=== PATIENT | male | born 1970 | race Caucasian/White ===

== ENCOUNTER → 2017-07-19 | Outpatient (CLI) | payer OTHER ==
[2017-07-19 16:44] LABS: Basophils # (A) 0.1 k/uL (0-0.2); Basophils % (A) 1 %; Eosinophils # (A) 0.8 k/uL (0-0.7); Eosinophils % (A) 11 %; HCT 47.7 % (39.0-53.0); HGB 15.4 gm/dL (13.0-17.5); Lymphocytes # (A) 1.5 k/uL (1.0-4.8); Lymphocytes % (A) 20 %; MCH 32.5 pg (25.0-35.0); MCHC 32.2 g/dL (31.0-37.0); MCV 100.8 fL (80.0-100.0); Mean Platelet Volume 8.5; Monocytes # (A) 0.7 k/uL (0-1.0); Monocytes % (A) 9 %; Neutrophils # (A) 4.2 k/uL (1.3-7.7); Neutrophils % (A) 57 %; Platelet Count 191 k/uL (150-450); RBC 4.74 m/uL (4.30-5.90); RDW 12.4 % (11.5-15.5); WBC 7.5 k/uL (3.8-10.6)
[2017-07-19 16:58] LABS: ALT 39 U/L (21-72); AST 23 U/L (17-59); Albumin 4.4 g/dL (3.5-5.0); Alkaline Phosphatase 55 U/L (38-126); Anion Gap 12 mmol/L; Blood Urea Nitrogen 9 mg/dL (9-20); Calcium 9.8 mg/dL (8.4-10.2); Carbon Dioxide 29 mmol/L (22-30); Chloride 100 mmol/L (98-107); Glucose 83 mg/dL (74-99); Potassium 4.3 mmol/L (3.5-5.1); Sodium 141 mmol/L (137-145); Total Bilirubin 0.3 mg/dL (0.2-1.3); Total Protein 7.4 g/dL (6.3-8.2)
[2017-07-19 17:14] LABS: T4, Free (Free Thyroxine) 0.87 ng/dL (0.78-2.19)
[2017-07-20 02:43] LABS: Streptolysin O Ab(ASO) <25 IU/mL (0-200)
[2017-07-20 02:52] LABS: DHEA Sulfate 325.9 ug/dL (34.5-568.9)
[2017-07-20 05:10] LABS: Thyroid Peroxidase Antibodies <28.0 U/mL (0.0-60.0)
[2017-07-20 06:24] LABS: Anti-DNA, DS unit <1.0 IU/mL; DNA Double-Stranded NEGATIVE (NEGATIVE)
[2017-07-20 08:03] LABS: EBV - EA (IgG) 9.6 U/mL (<9.0)
[2017-07-20 14:50] LABS: Vitamin B12 >4000.0 pg/mL (211-911)
[2017-07-21 14:11] LABS: Strep DNASE B Antibody <86 U/mL (0-260)
[2017-07-21 16:29] LABS: Bartonella henselae Ab, IgG <1:64; Bartonella henselae Ab, IgM < 1:16
[2017-07-22 22:11] LABS: Herpes simplex I and/or II IgM 0.58 INDEX (<=0.90); Herpes simplex IgG I Ab >62.20 (< or = 0.90); Herpes simplex IgG II Ab 0.08 (< or = 0.90)
[2017-07-23 03:44] LABS: Mycoplasma IgM Antibody 0.14 INDEX (<=0.90)
[2017-07-23 10:18] LABS: Casein IgE Class CLASS 0
[2017-07-23 16:12] LABS: Vitamin D 25 Hydroxy 55.4 ng/mL (30.0-100.0)
[2017-07-23 18:03] LABS: Gliadin AB IgA, Unit <0.2 U/mL
[2017-07-23 19:44] LABS: Cow's Milk IgG 63.9 mcg/mL (< 2.0); Peanut IgG 12.1 mcg/mL (< 2.0); Soybean IgG 6.1 mcg/mL (< 2.0); Walnut IgG 16.3 mcg/mL (< 2.0); Wheat IgG 24.8 mcg/mL (< 2.0)
[2017-07-23 19:45] LABS: Casein IgG 7.4 mcg/mL (< 2.0); Corn IgG 14.4 mcg/mL (< 2.0)
[2017-07-24 13:25] LABS: IgG Subclass 3 35.2 mg/dL (11.0-85.0)
[2017-07-24 13:29] LABS: Immunoglobulin M 64.9 mg/dL (40.0-280.0)
[2017-07-24 13:48] LABS: IgG Subclass 4 0.3 mg/dL (3.0-175.0)
== END | disposition home or self-care (01) ==
LOC: LABWHC1 07-18 16:51
PROVIDERS: ATTEND Nurse Practitioner Family
DX: M35.9 Systemic involvement of connective tissue, unspecified (principal); R53.83 Other fatigue
CPT/HCPCS: 36415; 80053; 81291; 82024; 82139; 82306; 82530; 82533; 82607; 82627; 82728; 82784; 82785; 82787; 83516; 83520; 83540; 83550; 84439; 84443; 84481; 85025; 86001; 86003; 86038; 86060; 86160; 86215; 86225; 86376; 86611; 86628; 86644; 86645; 86663; 86664; 86665; 86666; 86694; 86695; 86696; 86738; 86753; 86790; 86800; 87798; 88184; 88185

== ENCOUNTER → 2017-08-09 | Outpatient (CLI) | payer OTHER | END | disposition home or self-care (01) | LOC: LABWHC1 13:55 | PROVIDERS: ATTEND Nurse Practitioner Family | DX: T78.1XXA Other adverse food reactions, not elsewhere classified, initial encounter (principal); Z91.018 Allergy to other foods; M35.9 Systemic involvement of connective tissue, unspecified; R53.83 Other fatigue | CPT/HCPCS: 36415; 86003 ==

== ENCOUNTER 2018-09-01 10:03 | Emergency (ER) | payer OTHER ==
[2018-09-01 10:19] VITALS: RESP 18
--- NOTE | 2018-09-01 11:38 | ED ---
General Adult HPI - General Chief complaint: Dizziness Stated complaint: lt arm pain Time Seen by Provider: 09/01/18 10:38 Source: patient, RN notes reviewed, old records reviewed Mode of arrival: ambulatory Limitations: no limitations - History of Present Illness Initial comments: 48-year-old malewith past medical history presents for evaluation of left arm pain, maybe mild left sided chest pain. Patient's symptoms began yesterday evening, described tingling sensation and very mild pain in the left arm. This was while at rest. Denies central chest pain at that time. He did develop some left-sided chest pain throughout the evening. Symptoms began approximately 14 hours prior to arrival. No nausea vomiting. No diaphoresis. No dyspnea. No abdominal pain. No headache. No vision changes. No focal weakness. No history of CVA. No history of CAD. No current medications. Patient also had an episode of lightheadedness dizziness which lasted just moments. He is asymptomatic with regard to this symptom at the time my evaluation. He has no history of CAD. He does walk daily with no complaints. - Related Data Home Medications Medication Instructions Recorded Confirmed Cyanocobalamin (Vitamin B-12) 1,000 mcg PO Q48H 09/01/18 09/01/18 [Vitamin B-12] Allergies Allergy/AdvReac Type Severity Reaction Status Date / Time corn Allergy Unknown Verified 09/01/18 10:54 egg Allergy Unknown Verified 09/01/18 10:54 Milk Containing Products Allergy Unknown Verified 09/01/18 10:54 [Dairy] wheat Allergy Unknown Verified 09/01/18 10:54 Review of Systems ROS Statement: Those systems with pertinent positive or pertinent negative responses have been documented in the HPI. ROS Other: All systems not noted in ROS Statement are negative. Past Medical History Past Medical History: No Reported History History of Any Multi-Drug Resistant Organisms: C-DIFF Date of last positivie culture/infection: 2012 Past Surgical History: Orthopedic Surgery Additional Past Surgical History / Comment(s): L arm, L leg vein replacement Past Psychological History: No Psychological Hx Reported Smoking Status: Never smoker Past Alcohol Use History: Occasional Past Drug Use History: None Reported General Exam Limitations: no limitations General appearance: alert, in no apparent distress Head exam: Present: atraumatic, normocephalic Eye exam: Present: normal appearance, PERRL, EOMI ENT exam: Present: normal exam Neck exam: Present: normal inspection, tenderness Respiratory exam: Present: normal lung sounds bilaterally. Absent: respiratory distress, wheezes Cardiovascular Exam: Present: regular rate, normal rhythm GI/Abdominal exam: Present: soft. Absent: distended, tenderness, guarding Extremities exam: Present: normal inspection, normal capillary refill, other ( left radial pulse 2+, normal hat brim curler strength, normal cap refill). Absent: pedal edema, calf tenderness Neurological exam: Present: alert, oriented X3, CN II-XII intact. Absent: motor sensory deficit (No sensory deficit, no focal weakness.) Psychiatric exam: Present: normal affect, normal mood Skin exam: Present: warm, dry, intact. Absent: cyanosis, diaphoretic Course Vital Signs 09/01/18 10:15 Temperature 98.5 F Pulse Rate 82 Respiratory 18 Rate Blood Pressure 143/101 O2 Sat by Pulse 97 Oximetry EKG Findings - EKG Comments: EKG Findings:: EKG: Normal sinus rhythm, ventricular rate 71, WA interval 150, QRS duration 88, QTC 425, no ST segment elevation or depression Medical Decision Making - Medical Decision Making 48-year-old male with very mild left arm pain, paresthesia, and possibly some minimal left lateral chest pain. Patient concerned that this may be related to his heart. EKG is negative for definitive signs of ischemia. Patient has no risk factors, no central chest pain. No vomiting or diaphoresis. Symptoms began 14 hours prior to arrival. Chest x-ray obtained, negative for acute cardiopulmonary disease. CBC, CMP unremarkable, negative troponin, I am reassured by this negative troponin as symptoms have been constant and present for 14 hours. I did have a lengthy discussion with the patient regarding return parameters, will return with central chest pain, nausea, diaphoresis. Will return with focal numbness or weakness. Follow-up with his primary care physician. - Lab Data Result diagrams: 09/01/18 11:54 09/01/18 11:54 Lab Results 09/01/18 09/01/18 09/01/18 Range/Units 11:54 11:54 11:54 WBC 7.5 (3.8-10.6) k/uL RBC 4.52 (4.30-5.90) m/uL Hgb 14.8 (13.0-17.5) gm/dL Hct 44.0 (39.0-53.0) % MCV 97.3 (80.0-100.0) fL MCH 32.8 (25.0-35.0) pg MCHC 33.7 (31.0-37.0) g/dL RDW 12.5 (11.5-15.5) % Plt Count 187 (150-450) k/uL Neutrophils % 63 % Lymphocytes % 18 % Monocytes % 9 % Eosinophils % 8 % Basophils % 1 % Neutrophils # 4.8 (1.3-7.7) k/uL Lymphocytes # 1.4 (1.0-4.8) k/uL Monocytes # 0.7 (0-1.0) k/uL Eosinophils # 0.6 (0-0.7) k/uL Basophils # 0.0 (0-0.2) k/uL PT (9.0-12.0) sec INR (<1.2) APTT (22.0-30.0) sec Sodium 142 (137-145) mmol/L Potassium 4.4 (3.5-5.1) mmol/L Chloride 107 (98-107) mmol/L Carbon Dioxide 26 (22-30) mmol/L Anion Gap 9 mmol/L BUN 14 (9-20) mg/dL Creatinine 0.70 (0.66-1.25) mg/dL Est GFR (CKD-EPI)AfAm >90 (>60 ml/min/1.73 sqM) Est GFR (CKD-EPI)NonAf >90 (>60 ml/min/1.73 sqM) Glucose 92 (74-99) mg/dL Calcium 9.8 (8.4-10.2) mg/dL Magnesium 2.1 (1.6-2.3) mg/dL Total Bilirubin 0.7 (0.2-1.3) mg/dL AST 25 (17-59) U/L ALT 32 (21-72) U/L Alkaline Phosphatase 53 (38-126) U/L Total Creatine Kinase 114 (55-170) U/L CK-MB (CK-2) 0.4 (0.0-2.4) ng/mL CK-MB (CK-2) Rel Index 0.4 Troponin I <0.012 (0.000-0.034) ng/mL Total Protein 7.8 (6.3-8.2) g/dL Albumin 4.5 (3.5-5.0) g/dL 09/01/18 Range/Units 11:54 WBC (3.8-10.6) k/uL RBC (4.30-5.90) m/uL Hgb (13.0-17.5) gm/dL Hct (39.0-53.0) % MCV (80.0-100.0) fL MCH (25.0-35.0) pg MCHC (31.0-37.0) g/dL RDW (11.5-15.5) % Plt Count (150-450) k/uL Neutrophils % % Lymphocytes % % Monocytes % % Eosinophils % % Basophils % % Neutrophils # (1.3-7.7) k/uL Lymphocytes # (1.0-4.8) k/uL Monocytes # (0-1.0) k/uL Eosinophils # (0-0.7) k/uL Basophils # (0-0.2) k/uL PT 11.0 (9.0-12.0) sec INR 1.0 (<1.2) APTT 24.4 (22.0-30.0) sec Sodium (137-145) mmol/L Potassium (3.5-5.1) mmol/L Chloride (98-107) mmol/L Carbon Dioxide (22-30) mmol/L Anion Gap mmol/L BUN (9-20) mg/dL Creatinine (0.66-1.25) mg/dL Est GFR (CKD-EPI)AfAm (>60 ml/min/1.73 sqM) Est GFR (CKD-EPI)NonAf (>60 ml/min/1.73 sqM) Glucose (74-99) mg/dL Calcium (8.4-10.2) mg/dL Magnesium (1.6-2.3) mg/dL Total Bilirubin (0.2-1.3) mg/dL AST (17-59) U/L ALT (21-72) U/L Alkaline Phosphatase (38-126) U/L Total Creatine Kinase (55-170) U/L CK-MB (CK-2) (0.0-2.4) ng/mL CK-MB (CK-2) Rel Index Troponin I (0.000-0.034) ng/mL Total Protein (6.3-8.2) g/dL Albumin (3.5-5.0) g/dL Disposition Clinical Impression: Paresthesia, Chest pain Disposition: HOME SELF-CARE Condition: Good Instructions (If sedation given, give patient instructions): Paresthesia (ED), Chest Pain (ED) Is patient prescribed a controlled substance at d/c from ED?: No Referrals: Raulito Don DO [Primary Care Provider] - 1-2 days Time of Disposition: 13:23
--- NOTE | 2018-09-01 11:39 | XR ---
EXAMINATION TYPE: XR chest 2V DATE OF EXAM: 09/01/2018 COMPARISON: None INDICATION: Chest pain TECHNIQUE: Frontal and lateral views of the chest are obtained. FINDINGS: The heart size is normal. The pulmonary vasculature is normal. The lungs are clear. IMPRESSION: 1. No acute pulmonary process.
[2018-09-01 12:29] LABS: Basophils % (A) 1 %; Eosinophils # (A) 0.6 k/uL (0-0.7); Eosinophils % (A) 8 %; HGB 14.8 gm/dL (13.0-17.5); Lymphocytes # (A) 1.4 k/uL (1.0-4.8); Lymphocytes % (A) 18 %; MCH 32.8 pg (25.0-35.0); MCHC 33.7 g/dL (31.0-37.0); MCV 97.3 fL (80.0-100.0); Mean Platelet Volume 8.1; Monocytes # (A) 0.7 k/uL (0-1.0); Monocytes % (A) 9 %; Neutrophils # (A) 4.8 k/uL (1.3-7.7); Neutrophils % (A) 63 %; Platelet Count 187 k/uL (150-450); RBC 4.52 m/uL (4.30-5.90); RDW 12.5 % (11.5-15.5); WBC 7.5 k/uL (3.8-10.6)
[2018-09-01 12:32] LABS: ALT 32 U/L (21-72); AST 25 U/L (17-59); Albumin 4.5 g/dL (3.5-5.0); Alkaline Phosphatase 53 U/L (38-126); Anion Gap 9 mmol/L; Blood Urea Nitrogen 14 mg/dL (9-20); Calcium 9.8 mg/dL (8.4-10.2); Carbon Dioxide 26 mmol/L (22-30); Chloride 107 mmol/L (98-107); Glucose 92 mg/dL (74-99); Magnesium 2.1 mg/dL (1.6-2.3); Potassium 4.4 mmol/L (3.5-5.1); Sodium 142 mmol/L (137-145); Total Bilirubin 0.7 mg/dL (0.2-1.3); Total Protein 7.8 g/dL (6.3-8.2)
[2018-09-01 12:44] LABS: Creatine Kinase 114 U/L (55-170); Partial Thromboplastin Time 24.4 sec (22.0-30.0)
[2018-09-01 12:56] LABS: Creatine Kinase MB 0.4 ng/mL (0.0-2.4); Troponin I <0.012 ng/mL (0.000-0.034)
[2018-09-01 13:22] VITALS: BP 131/86; PULSE 66; TEMP 98.7
== END 2018-09-01 13:37 | disposition home or self-care (01) ==
LOC: EC 10:03
DX: R20.2 Paresthesia of skin (principal); R07.9 Chest pain, unspecified; M79.602 Pain in left arm; R42 Dizziness and giddiness; Z91.011 Allergy to milk products; Z91.012 Allergy to eggs; Z91.018 Allergy to other foods
CPT/HCPCS: 36415; 71046; 80053; 82550; 82553; 83735; 84484; 85025; 85610; 85730; 99284

== ENCOUNTER → 2021-07-06 | Outpatient (CLI) | payer OTHER ==
--- NOTE | 2021-07-06 15:02 | CT ---
EXAMINATION TYPE: CT sinus wo con DATE OF EXAM: 07/06/2021 COMPARISON: None HISTORY: Chronic sinusitis. Allergies. CT DLP: 734.3 mGycm. Automated Exposure Control for Dose Reduction was Utilized. TECHNIQUE: CT scan of the sinuses is performed without contrast, axial images are obtained, coronal r eformatted images are also reviewed. FINDINGS: Severe mucosal thickening involving the ethmoid air cells. Frontal mild mucosal thickening involving the frontal sinus and sphenoid sinus. There is mild mucosal thickening involving the maxill abbey sinus with occlusion of the bilateral ostiomeatal complex. Visualized portion of mastoid air cells show no abnormal opacification. The globes are intact bilate rally. There is a slight nasal septal deviation. IMPRESSION: 1. Severe ethmoidal bilateral sinusitis with occlusion of the ostiomeatal complex. Mild mucosal thick ening involving the remaining paranasal sinuses. No air-fluid levels.
== END | disposition home or self-care (01) ==
LOC: RADCTMAIN 14:07
PROVIDERS: ATTEND Otolaryngology
DX: J32.2 Chronic ethmoidal sinusitis (principal); J34.89 Other specified disorders of nose and nasal sinuses
CPT/HCPCS: 70486

== ENCOUNTER → 2021-08-01 | Outpatient (CLI) | payer OTHER ==
[2021-08-02 01:17] LABS: Basophils # (A) 0.04 X 10*3/uL (0.00-0.10); Basophils % (A) 0.6 %; Eosinophils # (A) 0.45 X 10*3/uL (0.04-0.35); Eosinophils % (A) 6.4 %; HCT 49.4 % (39.6-50.0); HGB 16.2 g/dL (13.0-17.0); Lymphocytes # (A) 1.51 X 10*3/uL (0.90-5.00); Lymphocytes % (A) 21.4 %; MCH 32.5 pg (27.0-32.0); MCHC 32.8 g/dL (32.0-37.0); MCV 99.2 fL (80.0-97.0); Mean Platelet Volume 12.6 fL (9.5-12.2); Monocytes # (A) 0.59 X 10*3/uL (0.20-1.00); Monocytes % (A) 8.4 %; Neutrophils # (A) 4.46 X 10*3/uL (1.80-7.70); Neutrophils % (A) 63.1 %; Platelet Count 204 X 10*3/uL (140-440); RBC 4.98 X 10*6/uL (4.40-5.60); RDW 12.2 % (11.5-14.5); WBC 7.06 X 10*3/uL (4.50-10.00)
[2021-08-02 08:52] LABS: % Iron Saturation 30.65 (15.00-50.00); ALT 21 U/L (10-49); AST 18 U/L (14-35); African American GFR (CKD) 120.7 (60.0-200.0); Albumin 4.9 g/dL (3.8-4.9); Albumin/Globulin Ratio 1.81 (1.60-3.17); Alkaline Phosphatase 63 U/L (41-126); BUN/Creat Ratio 11.88 Ratio (12.00-20.00); Blood Urea Nitrogen 9.5 mg/dL (9.0-27.0); Calcium 9.7 mg/dL (8.7-10.3); Carbon Dioxide 20.2 mmol/L (20.0-27.5); Chloride 104 mmol/L (96-109); Ferritin 55.8 ng/mL (22.0-322.0); Globulin 2.7 g/dL (1.6-3.3); Glucose 95 mg/dL (70-110); Iron 124 ug/dL (65-175); Non-African American GFR(CKD) 104.2 (60.0-200.0); Potassium 4.2 mmol/L (3.5-5.5); Sodium 142 mmol/L (135-145); Total Iron Binding Capacity 405 ug/dL (228-460); Total Protein 7.6 g/dL (6.2-8.2)
[2021-08-02 08:54] LABS: Folate, Serum >20.00 ng/mL (4.40-31.00); Vitamin B12 >2000.0 pg/mL (200.0-944.0)
== END | disposition home or self-care (01) ==
LOC: LABWHC1 14:08
PROVIDERS: ATTEND Family Medicine
DX: R53.83 Other fatigue (principal)
CPT/HCPCS: 36415; 80053; 82607; 82728; 82746; 83540; 83550; 84403; 84443; 85025

== ENCOUNTER 2022-04-18 08:59 | Day surgery (SDC) | payer OTHER ==
[2022-04-16 15:20] VITALS: BMI 25.8
[~2022-04-18 08:59] MED LIST: LACTATED RINGERS 1,000 ML IV SCH; LIDOCAINE 1% (10MG/ML) FOR IV START INTRADERMA PRN
[2022-04-18 09:40] VITALS: TEMP 96.6
[2022-04-18] MEDS ORDERED: PROPOFOL 10 MG/ML 20 ML VIAL IV ONE (10:14)
--- NOTE | 2022-04-18 10:41 | P.PCN ---
Date of Procedure: 04/18/22 Procedure(s) Performed: BRIEF HISTORY: Patient is a 51-year-old pleasant white male scheduled for an elective colonoscopy as a part of screening for colorectal neoplasia. PROCEDURE PERFORMED: Colonoscopy. PREOPERATIVE DIAGNOSIS: Screening for colon cancer. IV sedation per Anesthesia. PROCEDURE: After informed consent was obtained, the patient, was brought into the endoscopy unit. IV sedation was administered by Anesthesia under continuous monitoring. Digital rectal examination was normal. Initially the Olympus CF-160 flexible video colonoscope was then inserted in the rectum, gradually advanced into the cecum without any difficulty. Careful examination was performed as the scope was gradually being withdrawn. Ileocecal valve and the appendiceal orifice were visualized and appeared normal. Prep was excellent. Mucosa of the cecum, ascending colon, transverse colon, descending colon, sigmoid colon, and rectum appeared normal. Retroflexion was performed in the rectum and no lesions were seen. The patient tolerated the procedure well. IMPRESSION: Normal-appearing colon from rectum to cecum with no evidence of colorectal . RECOMMENDATIONS: Findings of this examination were discussed with the patient as well as his family. He was advised to have a repeat screening colonoscopy in 10 years..
[2022-04-18 11:15] VITALS: BP 106/60; PULSE 62; RESP 16
== END 2022-04-18 11:42 | disposition home or self-care (01) ==
LOC: ORWHC2ENDO 08:59
PROVIDERS: ATTEND Internal Medicine Gastroenterology
DX: Z12.11 Encounter for screening for malignant neoplasm of colon (principal); R53.82 Chronic fatigue, unspecified; K58.9 Irritable bowel syndrome, unspecified; Z79.899 Other long term (current) drug therapy; Z91.012 Allergy to eggs; Z91.011 Allergy to milk products; Z91.018 Allergy to other foods
CPT/HCPCS: J2704; G0121

== ENCOUNTER → 2022-05-26 | Outpatient (CLI) | payer OTHER ==
[2022-05-27 09:45] LABS: Basophils # (A) 0.1 k/uL (0-0.2); Basophils % (A) 1 %; Eosinophils # (A) 0.6 k/uL (0-0.7); Eosinophils % (A) 7 %; HCT 49.4 % (39.0-53.0); HGB 16.3 gm/dL (13.0-17.5); Lymphocytes # (A) 1.4 k/uL (1.0-4.8); Lymphocytes % (A) 18 %; MCH 33.4 pg (25.0-35.0); MCV 101.3 fL (80.0-100.0); Mean Platelet Volume 11.5; Monocytes # (A) 0.7 k/uL (0-1.0); Monocytes % (A) 8 %; Neutrophils % (A) 63 %; Platelet Count 207 k/uL (150-450); RBC 4.87 m/uL (4.30-5.90); RDW 12.1 % (11.5-15.5); WBC 7.9 k/uL (3.8-10.6)
== END | disposition home or self-care (01) ==
LOC: LABWHC1 10:54
PROVIDERS: ATTEND Otolaryngology
DX: D89.40 Mast cell activation, unspecified (principal)
CPT/HCPCS: 36415; 82785; 83520; 85025

== ENCOUNTER → 2022-06-30 | Outpatient (CLI) | payer OTHER ==
[2022-06-30 16:15] LABS: Basophils # (A) 0.04 X 10*3/uL (0.00-0.10); Basophils % (A) 0.7 %; Eosinophils # (A) 0.42 X 10*3/uL (0.04-0.35); Eosinophils % (A) 7.4 %; HCT 48.8 % (39.6-50.0); HGB 16.1 g/dL (13.0-17.0); Immature Grans, Automated 0.2 %; Lymphocytes # (A) 1.47 X 10*3/uL (0.90-5.00); Lymphocytes % (A) 25.7 %; MCH 32.6 pg (27.0-32.0); MCV 98.8 fL (80.0-97.0); Mean Platelet Volume 12.6 fL (9.5-12.2); Monocytes # (A) 0.52 X 10*3/uL (0.20-1.00); Monocytes % (A) 9.1 %; NRBC Per 100 WBC 0 /100 WBCS (0.0-0.0); Neutrophils # (A) 3.25 X 10*3/uL (1.80-7.70); Neutrophils % (A) 56.9 %; Platelet Count 203 X 10*3/uL (140-440); RBC 4.94 X 10*6/uL (4.40-5.60); RDW 11.9 % (11.5-14.5); WBC 5.71 X 10*3/uL (4.50-10.00)
[2022-06-30 16:47] LABS: Amylase 38 U/L (23-121); Lipase 21 U/L (14-60)
[2022-06-30 17:15] LABS: Vitamin B12 >3600.0 pg/mL (200.0-944.0)
[2022-06-30 18:52] LABS: Erythrocyte Sedimentation Rate 17 mm/Hr (0-20)
[2022-07-01 07:46] LABS: ALT 22 U/L (10-49); AST 19 U/L (14-35); Albumin 4.6 g/dL (3.8-4.9); Albumin/Globulin Ratio 1.79 (1.60-3.17); Alkaline Phosphatase 63 U/L (41-126); Bilirubin, Conjugated <0.20 mg/dL (0.20-0.40); Ferritin 54.5 ng/mL (22.0-322.0); Globulin 2.6 g/dL (1.6-3.3); Total Protein 7.2 g/dL (6.2-8.2)
[2022-07-01 07:47] LABS: African American GFR (CKD) 114.2 (60.0-200.0); BUN/Creat Ratio 8.98 Ratio (12.00-20.00); Blood Urea Nitrogen 8.1 mg/dL (9.0-27.0); C Reactive Protein <0.30 mg/dL (0.00-0.80); Calcium 9.7 mg/dL (8.7-10.3); Carbon Dioxide 24.2 mmol/L (20.0-27.5); Chloride 103 mmol/L (96-109); Glucose 94 mg/dL (70-110); Magnesium 2.1 mg/dL (1.5-2.4); Non-African American GFR(CKD) 98.5 (60.0-200.0); Potassium 4.7 mmol/L (3.5-5.5); Sodium 141 mmol/L (135-145)
[2022-07-02 16:17] LABS: Gliadin AB IgA, Deaminated NEGATIVE (NEGATIVE); Gliadin AB IgA, Unit 0.4 U/mL; Gliadin AB IgG, Deaminated NEGATIVE (NEGATIVE); Gliadin AB IgG, Unit <0.4 U/mL
== END | disposition home or self-care (01) ==
LOC: LABWHC1 09:38
PROVIDERS: ATTEND Internal Medicine Gastroenterology
DX: R19.7 Diarrhea, unspecified (principal); R10.30 Lower abdominal pain, unspecified
CPT/HCPCS: 36415; 80048; 80076; 82150; 82306; 82607; 82705; 82728; 82746; 82784; 83516; 83690; 83735; 83993; 84443; 84481; 85025; 85652; 86140

== ENCOUNTER → 2022-11-22 | Outpatient (CLI) | payer OTHER ==
--- NOTE | 2022-11-22 17:10 | P.PN ---
Subjective DATE: 11/22/2022 FOLLOW UP VISIT. Patient returned to sleep center for follow-up visit to discuss results of sleep study and following plan. Patient had a home sleep apnea test and I explained him results of the test in details. Apnea-hypopnea index 10.3. Test was done without oral appliances. Patient to use oral appliances before but even well using oral appliance she continued to feel significant tiredness and sleepiness. Patient continued to feel significant symptoms of tiredness and sleepiness during the day. [place] Sleepiness Scale today increased significantly to 15.. . MEDICATIONS:1. Famotidine 40 mg once a day 2. Novarel During physical exam: GENERAL: A pleasant patient without any distress. VITAL SIGNS: BP 123/73, HR 65, RR 12 , weight 173.2, temperature 97.3, oxygen saturation at room air 96 . HEENT: PERRLA, EOMI. NECK: Supple. No JVD. LUNGS: Clear to percussion and to auscultation. Good air exchange. No wheezing or rhonchi. HEART: S1, S2 regular. ABDOMEN: Soft and nontender. EXTREMITIES: No clubbing or cyanosis. SALES EXPERT: Awake, alert, and oriented x3. No focal deficit. Impressions: 1. Obstructive sleep apnea hypopnea syndrome 2. Patient presents with symptoms of significant excessive daytime sleepiness, [place] sleepiness scale increased to 15. 3. Acid reflux. 4. History of chronic fatigue syndrome. 5. Status post ganglion cyst removed from left wrist. Plan: 1. Patient will be started on treatment with AutoPAP 6-12 centimeters of water and should use equipment every night for the whole night. Prescription was written and sented to [facility]. 2. Sleep hygiene with regular time in bed for at least 8 hours. 3. Watching weight 4. Precautions related to driving. No driving if feel any sleepiness. Patient is aware about civil and criminal liability for unsafe driving, promised to follow recommendations. 5. Follow up visit in 1-2 months after patient will get CPAP equipment. Thank you very much for allowing me to participate in the management of your patient. Checo Saavedra MD, PhD, FAASM. Diplomat of [place] [employer], Sleep Medicine Board by [employer] Live In Companion of [facility] [place]
== END ==
LOC: SLEEP 16:36
PROVIDERS: ATTEND Internal Medicine
DX: G47.33 Obstructive sleep apnea (adult) (pediatric) (principal); K21.9 Gastro-esophageal reflux disease without esophagitis; R53.83 Other fatigue; Z98.890 Other specified postprocedural states; Z99.89 Dependence on other enabling machines and devices; Z91.018 Allergy to other foods; Z91.012 Allergy to eggs; Z91.011 Allergy to milk products
CPT/HCPCS: 99212

== ENCOUNTER → 2022-12-01 | Outpatient (CLI) | payer OTHER | END | disposition home or self-care (01) | LOC: LABWHC1 09:25 | PROVIDERS: ATTEND Allergy & Immunology | DX: R53.82 Chronic fatigue, unspecified (principal) ==

== ENCOUNTER → 2023-01-30 | Outpatient (CLI) | payer OTHER ==
--- NOTE | 2023-01-30 15:19 | P.PN ---
Subjective DATE: 01/30/2023 FOLLOW UP VISIT. Patient with obstructive sleep apnea hypopnea syndrome return to sleep center for follow-up visit. Recently patient had sleep study which documented obstructive sleep apnea hypopnea syndrome. Patient was initiated on PAP therapy and today is first visit after treatment was started. [place] sleepiness scale is 15, which is above normal and indicates sleepiness. I checked information from PAP unit. PAP unit pressure 6-12, average 10.0 cm H2O. Usage is 47 % for more then 4 hours, average 5.75 hours per night. Leak is increased to 29.9 l/m. Apnea Hypopnea Index is 6.1, which include 5.0 central apneas index. MEDICATIONS:1. Famotidine 40 mg once a day During physical exam: GENERAL: A pleasant patient without any distress. VITAL SIGNS: BP 129/78, HR 72, RR 12 , weight 170.4, temperature 97.5, oxygen saturation at room air 98% . HEENT: PERRLA, EOMI.low position of soft palate, Mallapati 2 . NECK: Supple. No JVD. LUNGS: Clear to percussion and to auscultation. Good air exchange. No wheezing or rhonchi. HEART: S1, S2 regular. ABDOMEN: Soft and nontender.[] EXTREMITIES: No clubbing or cyanosis. COORDINATOR OF ONLINE PROGRAMS: Awake, alert, and oriented x3. No focal deficit. Impressions: 1. Obstructive sleep apnea-hypopnea syndrome. in mild range. Patient has some problems related to the mask and possibly pressure. Information from the CPAP showed central apneas. 2. Patient continued to have significant excessive daytime sleepiness, [place] Sleepiness Scale is 15. 3. History of chronic fatigue syndrome. 4. Acid reflux. 5. Status post ganglion cyst removed from the left wrist. Plan: 1. Continue using PAP equipment every night for the whole night. Patient will try different CPAP mask. I changed pressure down to the level 5-10 cm of water. 2. To change air filter at least 1-2 times per month. 3. PAP unit should stay lower then position of the head. 4. Advised patient to remove all remaining water from humidifier canister daily and make it dry after each usage. Refill canister with fresh distilled water before each usage. 5. Sleep hygiene with regular time in bed for at least 8 hours. 6. Precautions related to driving. No driving if feel any sleepiness. 7. I will maintain prescription for PAP supplies including mask, tube, filters. 8. Follow up visit in 1-2 months. 9. If no improvements with daytime alertness on CPAP we will consider multiple sleep latency test for objective for evaluation symptoms of excessive sleepiness. Thank you very much for allowing me to participate in the management of your patient. Checo Saavedra MD, PhD, FAASM. Diplomat of [place] [employer], Sleep Medicine Board by [place] [employer] Industrial Tech Instructor of [facility] [place]
== END ==
LOC: 3 N SLEEP 14:13
PROVIDERS: ATTEND Internal Medicine
DX: G47.33 Obstructive sleep apnea (adult) (pediatric) (principal); K21.9 Gastro-esophageal reflux disease without esophagitis; G93.32 Myalgic encephalomyelitis/chronic fatigue syndrome; Z98.890 Other specified postprocedural states; Z99.89 Dependence on other enabling machines and devices; Z91.011 Allergy to milk products; Z91.018 Allergy to other foods; Z91.012 Allergy to eggs
CPT/HCPCS: 99212

== ENCOUNTER → 2024-06-04 | Outpatient (CLI) | payer OTHER ==
[2024-06-04 16:40] VITALS: BP 142/86; PULSE 80; RESP 16; TEMP 98
--- NOTE | 2024-06-04 18:02 | P.PROGSL ---
Subjective DATE: 06/04/2024 FOLLOW UP VISIT. Patient with obstructive sleep apnea hypopnea syndrome return to sleep center for follow-up visit. Information from previous visit have been reviewed. Patient was not able to use CPAP equipment well secondary to sinus problems. The patient does not have significant problems with the mask, PAP unit and humidification. [place] sleepiness scale is significantly increased to 15. I checked information from PAP unit. PAP unit pressure 5-10, average 9.8 cm H2O. Usage is 60 out of 365 nights . Leak is 0 l/m, which is in perfect range. Apnea Hypopnea Index is 3.8, which is normal. MEDICATIONS have been reviewed, please see below. During physical exam: GENERAL: A pleasant patient without any distress. VITAL SIGNS: Please see below, weight is 171 lbs. HEENT: PERRLA, EOMI.low position of soft palate, Mallapati 2 . NECK: Supple. No JVD. LUNGS: Clear to percussion and to auscultation. Good air exchange. No wheezing or rhonchi. HEART: S1, S2 regular. ABDOMEN: Soft and nontender.[] EXTREMITIES: No clubbing or cyanosis. LENS FABRICATING MACHINE TENDER: Awake, alert, and oriented x3. No focal deficit. Impressions: 1. Mild obstructive sleep apnea-hypopnea syndrome. Patient has difficulties with usage of CPAP equipment secondary to sinuses problems. 2. Patient continued to have excessive daytime sleepiness, [place] Sleepiness Scale increased. 3. Acid reflux. 4. History of chronic fatigue syndrome. 5. Status post ganglion cyst removed from the left wrist. I decreased level of pressure in CPAP unit to the range 5 to 8 cm of water. Plan: 1. Continue using PAP equipment every night for the whole night. We discussed adjustments of humidity and temperature in the tube. 2. Sleep hygiene with regular time in bed for at least 7.5-8 hours 3. PAP unit should stay lower then position of the head. 4. Advised patient to remove all remaining water from humidifier canister daily and make it dry after each usage. Refill canister with fresh distilled water before each usage. 5. Watching weight. 6. Precautions related to driving. No driving if feel any sleepiness. 7. I will maintain prescription for PAP supplies including mask, tube, filters. Thank you very much for allowing me to participate in the management of your patient. Checo Saavedra MD, PhD, FAASM. Diplomat of [place] [employer], Sleep Medicine Board by [employer] Lens Blocker of [facility] [place] cc: Raulito Don DO Objective - Vital Signs Vital Signs: Vital Signs Temp 98 F 06/04/24 16:39 Pulse 80 06/04/24 16:39 Resp 16 06/04/24 16:39 BP 142/86 06/04/24 16:39 Pulse Ox 95 06/04/24 16:39 FiO2 Intake & Output 06/03/24 06/04/24 06/04/24 18:59 06:59 18:59 Weight 77.564 kg Home Medications: Home Medications Medication Instructions Recorded Confirmed Type Chorionic Gonadotropin, Human 0.5 ml IM Q3D 04/16/22 06/04/24 History [Novarel] Cromolyn Sodium [Cromolyn Sodium 5 ml PO ACHS 04/16/22 04/18/22 History 20% Oral Soln] Dicyclomine [Bentyl] 10 mg PO TID 04/16/22 04/18/22 History Methylcobalamin 0.2 ml INJ Q2D 04/16/22 06/04/24 History Famotidine 40 mg PO DAILY 06/04/24 06/04/24 History Montelukast [Singulair] 10 mg PO DAILY 06/04/24 06/04/24 History
== END ==
LOC: 3 N SLEEP 15:28
PROVIDERS: ATTEND Internal Medicine
DX: G47.33 Obstructive sleep apnea (adult) (pediatric) (principal); K21.9 Gastro-esophageal reflux disease without esophagitis; G47.10 Hypersomnia, unspecified; G93.32 Myalgic encephalomyelitis/chronic fatigue syndrome; Z98.890 Other specified postprocedural states; Z99.89 Dependence on other enabling machines and devices; Z91.018 Allergy to other foods; Z91.012 Allergy to eggs; Z91.011 Allergy to milk products
CPT/HCPCS: 99212